=== PATIENT | male | born 1985 | race Caucasian/White ===

== ENCOUNTER 2016-11-03 12:02 | Outpatient (CLI) | payer OTHER ==
[2016-01-20 09:07] VITALS: BP 130/67
--- NOTE | 2016-11-03 14:23 | Diagnostic Imaging Report ---
ROSALIA HENRY [facility] [place] [facility] [id number] [facility] [address] [place], [place]. [address] Report Submission Date: November 03, 2016 1:23:45 PM CDT Patient Study Name: ANDRADE JASSO Date: November 03, 2016 12:15:33 PM CDT Modality Type: CR Gender: M Description: CHEST : 81 Institution: [facility] Physician: ROSALIA HENRY Pa and lateral chest Clinical history : Cough history of pneumonia and pleural effusion Comparison January 19, 2016 Technique pa and lateral upright Findings: The lung rea are clear. I see no hilar or mediastinal mass. Left pleural effusion and left lung atelectasis and clear. Minimal left costophrenic angle blunting remains. Mild changes of thoracic spondylosis are present. Impression: No acute pulmonary disease Much improve left lung field with residual left costophrenic angle blunting. The Large left pleural effusion and extensive lung atelectasis on the left has resolved Electronically signed on November 03, 2016 1:23:45 PM CDT by: Thanh MEEK
== END 2016-11-03 12:03 ==
LOC: RAD 12:02
PROVIDERS: ATTEND Physician Assistant
DX: R05 Cough (principal)
CPT/HCPCS: 71020